=== PATIENT | male | born 1935 | race Two or more races ===

== ENCOUNTER 2024-12-10 18:53 | Inpatient (IN) | payer OTHER ==
[~2024-12-10] VITALS: Ht 177.8 cm; Wt 83.5 kg
[~2024-12-10 18:53] MED LIST: AZITTAB2 PO
[2024-12-10 20:08] LABS: Hematocrit 38.5 % (41.0-53.0); Hemoglobin 12.8 g/dL (13.5-17.5); Mean Corpuscular Hemoglobin 31.7 pg (28.0-32.0); Mean Corpuscular Volume 95.2 fL (80.0-100.0); Nucleated Red Blood Cells % 0.0 %
--- NOTE | 2024-12-10 20:14 | DVH ---
CHEST RADIOGRAPH Indication: Suspected Sepsis Technique: Single frontal view of the chest was obtained Comparison: CT CT ANGIO CHEST CONTRAST on DOS: 07/20/23 FINDINGS: Lines and Tubes: None Lungs: No focal consolidation. Changes of the lungs. Hyperinflation of the lungs. Pleura: No effusion. No pneumothorax. Cardiomediastinal contours: Borderline cardiomegaly with Moderate atherosclerotic calcification uncoi ling of the aorta. Bones: No acute osseous abnormality. Partially imaged eyeglasses and springlike structure over the le ft upper abdominal quadrant which are most likely external to the patient.. IMPRESSION: No acute cardiopulmonary disease. Mild hyperinflation.
[2024-12-10 20:28] LABS: Alanine Aminotransferase 18 U/L (7-40); Albumin 4.6 g/dL (3.2-4.8); Alkaline Phosphatase 50 U/L (46-116); Anion Gap 10 (5-15); BUN/Creatinine Ratio 14.0 (10.0-20.0); Blood Urea Nitrogen 14 mg/dL (9-23); Calcium 9.7 mg/dL (8.7-10.4); Carbon Dioxide 24 mmol/L (20-31); Chloride 105 mmol/L (98-107); Potassium 4.9 mmol/L (3.5-5.1); Sodium 139 mmol/L (136-145); Total Protein 7.1 g/dL (5.7-8.2)
[2024-12-10 20:29] LABS: Bilirubin, Total 0.5 mg/dL (0.2-1.0)
--- NOTE | 2024-12-10 20:29 | ED.PDOC ---
History of Present Illness HPI Comments REVIEW OF SYSTEMS: General: No fever, no chills, or fatigue HEENT: No sore throat, no earache, no congestion, no neck pain. Cardiac: No chest pain. No palpitations. Lungs: No shortness of breath, no cough. GI: No nausea, no vomiting, no diarrhea, no constipation, no abdominal pain : No dysuria, frequency, or urgency. No hematuria. Musculoskeletal: No joint pain , no joint swelling, no extremity edema. Skin: No rash, no itching. Neuro: No headache, no dizziness, no weakness PHYSICAL EXAM: General: Awake, alert and oriented. No acute distress. Skin: Skin in warm, dry and intact. Appropriate color for ethnicity. HEENT: The head is normocephalic and atraumatic. Conjunctivae are clear without exudates or hemorrhage. Sclera is non-icteric. EOM are intact. No signs of nystagmus. Eyelids are normal in appearance without swelling or lesions. Oral mucosa is pink and moist Neck: The neck is supple with normal range of motion. No JVD. Cardiac: Heart rate and rhythm are normal. No murmurs, gallops, or rubs are aus cultated. Respiratory: No signs of respiratory distress. Lung sounds are clear in all lobes bilaterally without rales, rhonchi, or wheezes. Abdominal: Abdomen is soft, non-tender without distention, guarding or rigidity. Bowel sounds are present and normoactive in all four quadrants. Extremities: Upper and lower extremities are atraumatic in appearance without deformity or edema. Neurological: The patient is awake, alert and oriented to person, place, and time with normal speech. Speech is clear. There is no facial asymmetry. Psychiatric: Appropriate mood and affect. Good judgement and insight. Chief Complaint: Tremors Primary Care Provider: NONE Allergies: Coded Allergies: Clindamycin (Verified Allergy, Unknown, 07/20/23) Uncoded Allergies: DEMEROL HCL (Allergy, Unknown, 12/10/24) Home Meds Active Scripts Azithromycin (Zithromax Tri-Gerber) 500 Mg Tab, 500 MG PO DAILY PRN for 3 Days, #3 TAB Prov:VALORIE FERNANDEZ MD 07/20/23 Mode of Arrival: Ambulatory Past Medical History PAST MEDICAL HISTORY: HTN Family History Family History: Unknown Social History Smoker: Non-Smoker Alcohol: Denies ETOH Use Drugs: Denies Drug Use Lives In: Home X-Ray, Labs, Meds, VS Vital Signs Date Time Temp Pulse Resp B/P (MAP) Pulse Ox O2 Delivery O2 Flow Rate FiO2 12/10/24 19:06 98.3 88 18 171/71 97 98.3 Lab Test 12/10/24 19:47 Range/Units White Blood Count 19.4 H 4.4-10.8 10^3/uL Red Blood Count 4.05 L 4.5-5.90 10^6/uL Hemoglobin 12.8 L 13.5-17.5 g/dL Hematocrit 38.5 L 41.0-53.0 % Mean Corpuscular Volume 95.2 80.0-100.0 fL Mean Corpuscular Hemoglobin 31.7 28.0-32.0 pg Mean Corpuscular Hemoglobin Concent 33.3 32.0-36.0 g/dL Red Cell Distribution Width 14.1 11.8-14.3 % Platelet Count 224 140-450 10^3/uL Mean Platelet Volume 7.8 6.9-10.8 fL Neutrophils (%) (Auto) 84.2 H 37.0-80.0 % Lymphocytes (%) (Auto) 7.9 L 10.0-50.0 % Monocytes (%) (Auto) 6.5 0.0-12.0 % Eosinophils (%) (Auto) 0.8 0.0-7.0 % Basophils (%) (Auto) 0.6 0.0-2.0 % Neutrophils # (Auto) 16.4 H 1.6-8.6 10 ^3/uL Lymphocytes # (Auto) 1.5 0.4-5.4 10 ^3/uL Monocytes # (Auto) 1.3 0-1.3 10 ^3/uL Eosinophils # (Auto) 0.2 0-0.8 10 ^3/uL Basophils # (Auto) 0.1 0-0.2 10 ^3/uL Nucleated Red Blood Cells 0.0 % Sodium Level 139 136-145 mmol/L Potassium Level 4.9 3.5-5.1 mmol/L Chloride Level 105 98-107 mmol/L Carbon Dioxide Level 24 20-31 mmol/L Anion Gap 10 5-15 Blood Urea Nitrogen 14 9-23 mg/dL Creatinine 1.00 0.700-1.30 mg/dL Glomerular Filtration Rate Calc 72 >90 mL/min BUN/Creatinine Ratio 14.0 10.0-20.0 Serum Glucose 117 H 74-106 mg/dL Lactic Acid Level Pending Calcium Level 9.7 8.7-10.4 mg/dL Total Bilirubin 0.5 0.2-1.0 mg/dL Aspartate Amino Transferase (AST) 23 13-40 U/L Alanine Aminotransferase (ALT) 18 7-40 U/L Alkaline Phosphatase 50 46-116 U/L Total Protein 7.1 5.7-8.2 g/dL Albumin 4.6 3.2-4.8 g/dL SEPSIS Sepsis Screen Date sepsis recognized/suspect: Dec 10, 2024 Time Sepsis recognized/suspect: 1905 Recent Procedure: No On Antibiotic Therapy: No Respiratory Rate >20: No Heart Rate >90: No Temp<36 C (96.8 F) or >38.3 C: No SBP <90 or MAP <65 mmHG: No New Acute Mental Status Change: No Is the patient on CPAP, BIPAP,: No Physician Orders Lactic Acid W/ Reflex Order (12/10/24 19:35) Blood Culture (12/10/24 19:35) Chest Xray 1 View (12/10/24 19:35) Urinalysis (12/10/24 19:35) Comprehensive Metabolic Panel (12/10/24 19:35) Vital Signs Date Time Temp Pulse Resp B/P (MAP) Pulse Ox O2 Delivery O2 Flow Rate FiO2 12/10/24 19:06 98.3 88 18 171/71 97 98.3 Laboratory Tests Test 12/10/24 19:47 Lactic Acid Level Pending White Blood Count 19.4 10^3/uL (4.4-10.8) H Departure 1 Departure Comments MDM: Extensive evaluation was performed in attempt to identify or rule out: (See differential diagnosis section) The following tests were ordered, and results were reviewed by me and discussed with patient: (See diagnostic results section) The following test were independently interpreted by me: N/A I reviewed and agreed with the following test results read by other providers: N/A I reviewed the following notes from the pt's past medical encounters: N/A Additional information was gathered from interviewing the following independent historians: N/A Discussion of management or test interpretation with external physician/other qualified health home health care physician: N/A Addressed [ ]one or more chronic illnesses with severe exacerbation, progression, or side effects of treatment: [ ]an acute or chronic illness that poses a threat to life or bodily function: [ ] Decision regarding hospitalization or escalation of hospital level of care: Risk and benefits of admission for further treatment of patient's condition was considered. Due to patient's current clinical condition, high risk of decline and poor outcome if discharged and need for further inpatient management and monitoring, patient will be admitted to the hospital. Drug therapy requiring intensive monitoring for toxicity: N/A Parenteral controlled substances: N/A Decision regarding elective major surgery with identified patient or procedure risk factors: N/A Decision regarding emergency major surgery: N/A Decision not to resuscitate or to de-escalate care because of poor prognosis: N/A Diagnosis or treatment significantly limited by social determinants of health: N/A Decision regarding hospitalization or escalation of hospital level of care: Risks and benefits of admission for further treatment of patient's condition was considered however due to patient's stable condition patient will be discharged to follow up closely or return to care for worsening of condition or inability to follow up. I personally scribed for NAMAN SUAZO MD ([email or web address]) on 12/10/24 at 20:29. Electronically submitted by Lemuel Gutierrez ([email or web address]). I personally scribed for NAMAN SUAZO MD ([email or web address]) on 12/10/24 at 20:31. Electronically submitted by Lemuel Gutierrez ([email or web address]). NAMAN SUAZO MD Dec 10, 2024 20:29
[2024-12-10 20:30] LABS: Glucose 117 mg/dL (74-106)
--- NOTE | 2024-12-10 20:31 | ED.PDOC ---
History of Present Illness HPI Comments 89-year-old male presents with chief complaint of chills and generalized tremors. Patient reports on sudden onset of symptoms after taking a bowel movement at around 6:00 p.m., this evening. Endorses on being fine prior. Positive sick contact from . History symptoms in the past when he was found with pneumonia, which he was treated with azithromycin then. Additional reported significant history of hypertension and lung nodule in right upper lobe status post bronchoscopy. Patient denies having any chest pain, shortness of breath, dizziness, lightheadedness, fever, or further associated symptoms. REVIEW OF SYSTEMS: General: Chills, no fever, or fatigue HEENT: No sore throat, no earache, no congestion, no neck pain. Cardiac: No chest pain. No palpitations. Lungs: No shortness of breath, no cough. GI: No nausea, no vomiting, no diarrhea, no constipation, no abdominal pain : No dysuria, frequency, or urgency. No hematuria. Musculoskeletal: No joint pain , no joint swelling, no extremity edema. Skin: No rash, no itching. Neuro: Generalized tremors, no headache, no dizziness, no weakness PHYSICAL EXAM: General: Awake, alert and oriented. No acute distress. Skin: Skin in warm, dry and intact. Appropriate color for ethnicity. HEENT: The head is normocephalic and atraumatic. Conjunctivae are clear without exudates or hemorrhage. Sclera is non-icteric. EOM are intact. No signs of nystagmus. Eyelids are normal in appearance without swelling or lesions. Oral mucosa is pink and moist Neck: The neck is supple with normal range of motion. No JVD. Cardiac: Heart rate and rhythm are normal. No murmurs, gallops, or rubs are aus cultated. Respiratory: No signs of respiratory distress. Lung sounds are clear in all lobes bilaterally without rales, rhonchi, or wheezes. Abdominal: Abdomen is soft, non-tender without distention, guarding or rigidity. Bowel sounds are present and normoactive in all four quadrants. Extremities: Upper and lower extremities are atraumatic in appearance without deformity or edema. Neurological: The patient is awake, alert and oriented to person, place, and time with normal speech. Speech is clear. There is no facial asymmetry. Generalized Fine tremors. Psychiatric: Appropriate mood and affect. Good judgement and insight. Chief Complaint: Tremors Time Seen by MD: 18:55 Primary Care Provider: NONE Reviewed Notes: Nurses Notes, Medications, Allergies Allergies: Coded Allergies: Clindamycin (Verified Allergy, Unknown, 07/20/23) Uncoded Allergies: DEMEROL HCL (Allergy, Unknown, 12/10/24) Home Meds Active Scripts Azithromycin (Zithromax Tri-Gerber) 500 Mg Tab, 500 MG PO DAILY PRN for 3 Days, #3 TAB Prov:VALORIE FERNANDEZ MD 07/20/23 Information Source: Patient Mode of Arrival: Ambulatory Severity: Moderate Timing: Hours Duration: Since onset Prehospital treatment: None Past Medical History PAST MEDICAL HISTORY: HTN Past Medical History (Other): history of a nodule found in October 2022 to his right upper lung s/p bronchoscopy Surgical History (Other): bronchoscopy Family History Family History: Unknown Social History Smoker: Non-Smoker Alcohol: Denies ETOH Use Drugs: Denies Drug Use Lives In: Home Was a procedure done? Was a procedure done?: No Differential Dx Considerations may include: Differential diagnoses considered include but are not limited to sepsis, CVA, ACS, PE, stroke, ICH, adrenal insufficiency, viral syndrome, thyroid storm, myxedema coma , DKA, HHS, hypoglycemia, anemia, GI bleeding, renal failure, dehydration, hepatic failure, electrolyte imbalance, carbon monoxide poisoning, malignancy, UTI, pneumonia, among others. X-Ray, Labs, Meds, VS Vital Signs Date Time Temp Pulse Resp B/P (MAP) Pulse Ox O2 Delivery O2 Flow Rate FiO2 12/11/24 00:40 91 20 94 Room Air* 0 21 12/11/24 00:40 99.1 91 18 125/60 (81) 95 99.1 12/10/24 19:06 98.3 88 18 171/71 97 98.3 Lab Test 12/10/24 21:47 12/10/24 19:47 Range/Units Lactic Acid Level 4.2 *H 2.4 *H 0.4-2.0 mmol/L White Blood Count 19.4 H 4.4-10.8 10^3/uL Red Blood Count 4.05 L 4.5-5.90 10^6/uL Hemoglobin 12.8 L 13.5-17.5 g/dL Hematocrit 38.5 L 41.0-53.0 % Mean Corpuscular Volume 95.2 80.0-100.0 fL Mean Corpuscular Hemoglobin 31.7 28.0-32.0 pg Mean Corpuscular Hemoglobin Concent 33.3 32.0-36.0 g/dL Red Cell Distribution Width 14.1 11.8-14.3 % Platelet Count 224 140-450 10^3/uL Mean Platelet Volume 7.8 6.9-10.8 fL Neutrophils (%) (Auto) 84.2 H 37.0-80.0 % Lymphocytes (%) (Auto) 7.9 L 10.0-50.0 % Monocytes (%) (Auto) 6.5 0.0-12.0 % Eosinophils (%) (Auto) 0.8 0.0-7.0 % Basophils (%) (Auto) 0.6 0.0-2.0 % Neutrophils # (Auto) 16.4 H 1.6-8.6 10 ^3/uL Lymphocytes # (Auto) 1.5 0.4-5.4 10 ^3/uL Monocytes # (Auto) 1.3 0-1.3 10 ^3/uL Eosinophils # (Auto) 0.2 0-0.8 10 ^3/uL Basophils # (Auto) 0.1 0-0.2 10 ^3/uL Nucleated Red Blood Cells 0.0 % Sodium Level 139 136-145 mmol/L Potassium Level 4.9 3.5-5.1 mmol/L Chloride Level 105 98-107 mmol/L Carbon Dioxide Level 24 20-31 mmol/L Anion Gap 10 5-15 Blood Urea Nitrogen 14 9-23 mg/dL Creatinine 1.00 0.700-1.30 mg/dL Glomerular Filtration Rate Calc 72 >90 mL/min BUN/Creatinine Ratio 14.0 10.0-20.0 Serum Glucose 117 H 74-106 mg/dL Calcium Level 9.7 8.7-10.4 mg/dL Total Bilirubin 0.5 0.2-1.0 mg/dL Aspartate Amino Transferase (AST) 23 13-40 U/L Alanine Aminotransferase (ALT) 18 7-40 U/L Alkaline Phosphatase 50 46-116 U/L Total Protein 7.1 5.7-8.2 g/dL Albumin 4.6 3.2-4.8 g/dL Current Medications Medications (Trade) Dose Ordered Sig/Daija Route Start Time Stop Time Status Last Admin Ceftriaxone Sodium 50 ml @ 100 mls/hr ONCE ONCE IV 12/10/24 21:45 12/10/24 22:14 DC 12/11/24 00:30 Sodium Chloride 1,000 ml @ 1,000 mls/hr Q1H ONCE IV 12/10/24 21:45 12/10/24 22:44 DC 12/11/24 00:30 Sodium Chloride 1,000 ml @ 130 mls/hr Q7H42M ONCE IV 12/10/24 21:45 12/11/24 05:26 12/11/24 00:30 Vancomycin HCl 250 ml @ 250 mls/hr ONCE ONCE IV 12/10/24 22:00 12/10/24 22:59 DC 12/11/24 00:31 [place] [id number] Ph: [phone] DIAGNOSTIC IMAGING Diagnostic Imaging Report : [id number] Signed PATIENT: DEMETRIS PARRISH ACCT: [id number] UNIT: [id number] : 1935 LOC: ER ROOM / BED: / AGE / SEX: 89 / M ADM STATUS: REG ER SERVICE 34 ORDERING PHYSICIAN: NAMAN SUAZO MD PROCEDURE(s): CXR1 - CHEST XRAY 1 VIEW REASON: Suspected Sepsis ORDER NUMBER(s): [id number], ACCESSION NUMBER(s): [id number] CHEST RADIOGRAPH Indication: Suspected Sepsis Technique: Single frontal view of the chest was obtained Comparison: CT CT ANGIO CHEST CONTRAST on DOS: 07/20/23 FINDINGS: Lines and Tubes: None Lungs: No focal consolidation. Changes of the lungs. Hyperinflation of the lungs. Pleura: No effusion. No pneumothorax. Cardiomediastinal contours: Borderline cardiomegaly with Moderate atherosclerotic calcification uncoiling of the aorta. Bones: No acute osseous abnormality. Partially imaged eyeglasses and springlike structure over the left upper abdominal quadrant which are most likely external to the patient.. IMPRESSION: No acute cardiopulmonary disease. Mild hyperinflation. ATED BY: JIHAN MILLER DO DICTATED DATE/TIME: 12/10/242010 SIGNED BY: JIHAN MILLER DO SIGNED DATE/TIME: 12/10/242010 CC: Time of 1ST Reevaluation: 19:25 Reevaluation 1ST: Unchanged Patient Education/Counseling: Other (Need for admission) Family Education/Counseling: No Family Present SEPSIS Sepsis Screen Date sepsis recognized/suspect: Dec 10, 2024 Time Sepsis recognized/suspect: 1905 Recent Procedure: No On Antibiotic Therapy: No Respiratory Rate >20: No Heart Rate >90: No Temp<36 C (96.8 F) or >38.3 C: No SBP <90 or MAP <65 mmHG: No New Acute Mental Status Change: No Is the patient on CPAP, BIPAP,: No Physician Orders Blood Culture (12/10/24 19:35) Chest Xray 1 View (12/10/24 19:35) Sodium Chloride 0.9% (12/10/24 21:45) Straight Cath. (12/11/24 ) Vital Signs Date Time Temp Pulse Resp B/P (MAP) Pulse Ox O2 Delivery O2 Flow Rate FiO2 12/11/24 00:40 91 20 94 Room Air* 0 21 12/11/24 00:40 99.1 91 18 125/60 (81) 95 99.1 12/10/24 19:06 98.3 88 18 171/71 97 98.3 Laboratory Tests Test 12/10/24 19:47 12/10/24 21:47 Lactic Acid Level 2.4 mmol/L (0.4-2.0) *H 4.2 mmol/L (0.4-2.0) *H White Blood Count 19.4 10^3/uL (4.4-10.8) H Medications Medications Dose Ordered Sig/Daija Route Start Time Stop Time Status Last Admin Dose Admin Ceftriaxone Sodium 50 ml @ 100 mls/hr ONCE ONCE IV 12/10/24 21:45 12/10/24 22:14 DC 12/11/24 00:30 Sodium Chloride 1,000 ml @ 130 mls/hr Q7H42M ONCE IV 12/10/24 21:45 12/11/24 05:26 12/11/24 00:30 Sodium Chloride 1,000 ml @ 1,000 mls/hr Q1H ONCE IV 12/10/24 21:45 12/10/24 22:44 DC 12/11/24 00:30 Vancomycin HCl 250 ml @ 250 mls/hr ONCE ONCE IV 12/10/24 22:00 12/10/24 22:59 DC 12/11/24 00:31 Departure 1 Departure Time of Disposition: 21:44 Impression: Primary Impression: Sepsis Disposition: ADMITTED INPATIENT Condition: Stable Comments MDM: MDM: 81-year-old male presents to the emergency department with tremor Initial evaluation included thorough history, physical examination and appropriate diagnostic testing. Based on the clinical presentation and diagnostic findings, the patient appears to have sepsis Antibiotics, IV fluids initiated in the ED Given the complexity of the case and need for further management patient is being admitted to the hospitalist service for further monitoring, treatment and evaluation. Risks, benefits and alternatives of admission and proposed interventions were discussed with the patient. Patient is in agreement with the plan. Extensive evaluation was performed in attempt to identify or rule out: (See differential diagnosis section) The following tests were ordered, and results were reviewed by me and discussed with patient: (See diagnostic results section) The following test were independently interpreted by me: N/A I reviewed and agreed with the following test results read by other providers: Chest x-ray I reviewed the following notes from the pt's past medical encounters: July 20, 2023 encounter for pneumonia Additional information was gathered from interviewing the following independent historians: N/A Discussion of management or test interpretation with external physician/other qualified health infant caregiver: N/A Addressed an acute or chronic illness that poses a threat to life or bodily function: Sepsis Decision regarding hospitalization or escalation of hospital level of care: Risk and benefits of admission for further treatment of patient's condition was considered. Due to patient's current clinical condition, high risk of decline and poor outcome if discharged and need for further inpatient management and monitoring, patient will be admitted to the hospital. Critical Care Note Critical Care Time?: No Stability Stability form required: No Heart Score Heart Score: Heart Score Response (Comments) Value History N/A 0 EKG N/A 0 Age N/A 0 Risk Factors N/A 0 Troponin N/A 0 Total 0 I personally scribed for NAMAN SUAZO MD ([email or web address]) on 12/10/24 at 20:31. Electronically submitted by Lemuel Gutierrez ([email or web address]). I personally scribed for NAMAN SUAZO MD ([email or web address]) on 12/10/24 at 23:25. Electronically submitted by Lemuel Gutierrez ([email or web address]). NAMAN SUAZO MD Dec 10, 2024 20:31
[2024-12-10 20:32] LABS: Lactic Acid w/Reflex 2.4 mmol/L (0.4-2.0)
[2024-12-10] MEDS ORDERED: VANCOMYCIN 1GM/200ML PM 200 ML IV ONE (21:45)
[2024-12-11] VITALS (9 sets, daily range): BP systolic 113–148; BP diastolic 44–67; PULSE 72–91; RESP 18–21; TEMP 98–99.4; O2SAT 93–96
[2024-12-11] MEDS: cefTRIAXone 1GM/50ML D5W 50 ML IV ONE (00:30)
[2024-12-11] MEDS: SODIUM CHLORIDE 0.9% 1,000 ML IV ONE ×2 (00:30)
[2024-12-11] MEDS: VANCOMYCIN 1GM/250ML KIT 250 ML IV ONE (00:31)
[2024-12-11] MEDS ORDERED: DOCUSATE SOD 100 MG CAP PO PRN (01:45)
[2024-12-11] MEDS ORDERED: hydrALAZINE HCL 20 MG/ML VL IV PRN (01:45)
[2024-12-11] MEDS ORDERED: NITROGLYCERIN 0.4 MG SL TAB SL PRN (01:45)
[2024-12-11] MEDS ORDERED: MORPHINE SULFATE INJ 2 MG/ml SYRG IV PRN (01:45)
[2024-12-11] MEDS ORDERED: ONDANSETRON HCL 4 MG/2 ML VIAL IV PRN (01:45)
[2024-12-11] MEDS ORDERED: ALBUTEROL SULF 2.5 MG/0.5ML(0.5%) NEB SOLN NEB PRN (01:45)
[2024-12-11] MEDS ORDERED: ACETAMINOPHEN 325 MG TAB PO PRN (01:45)
[2024-12-11] MEDS: SODIUM CHLORIDE 0.9% 1,000 ML IV SCH (02:40)
[2024-12-11 03:24] LABS: Urine Protein, UAD TRACE (Negative)
--- NOTE | 2024-12-11 03:44 | DVHHP2 ---
DORIAN ROSE [employer] 12/11/24 0344: History of Present Illness Reason for Visit: Tremors History of Present Illness 89-year-old male with past medical history of juvenile asthma, hypertension, h yperlipidemia, infectious pulmonary nodule presents with complaints of tremors x1 day. Patient states he went to go have a bowel movement began to experience tremors shortly after. has recently been sick around him.. States last time he began to feel like this he had a bad infection. During the emergency department evaluation W19.4, H&H 12.8/30.5, PLT 224, LA 2.4/4.2 due to delays in ER treatment. Otherwise CMP essentially unremarkable UA was negative. CXR impression read mild hyperinflation of the lungs, with no acute cardiopulmonary disease. At this time patient denies fevers, chills, chest pain, palpitations, abdominal pain, nausea, vomiting, dysuria, hematemesis, hematochezia, melena. Cardiovascular: HTN, hyperipidemia Pulmonary: Other (Pulmonary nodule) Smoke: No ALCOHOL: none Drugs: None Lives: with Family Review of Systems Constitutional: Yes: Malaise, Other (Tremors); No: Fever, Chills, Sweats, [place] Eyes: No: Pain, Vision change, Conjunctivae inflammation, Eyelid inflammation, Other, Redness ENT: No: Ear pain, Ear discharge, Nose pain, Nose discharge, Nose congestion, Mouth pain, Mouth swelling, Throat pain, Throat swelling, Other Respiratory: Shortness of breath; No: Cough, Dry, SOB with excertion, Wheezing, Hemoptysis, Pleuritic Pain, Sputum, Wheezing, Other Cardiovascular: No: Chest Pain, Palpitations, Orthopnea, Paroxysmal Noc. Dyspnea, Edema, Lt Headedness, Other Gastrointestinal: No: Nausea, Vomiting, Abdominal Pain, Diarrhea, Constipation, Melena, Hematochezia, Other Genitourinary: No Dysuria, No Frequency, No Incontinence, No Hematuria, No Retention, No Other Musculoskeletal: No: other, neck pain, shoulder pain, arm pain, back pain, hand pain, leg pain, foot pain Skin: No: Rash, Lesions, Jaundice, Bruising, Other Neurological: No: Weakness, Numbness, Incoordination, Change in speech, Confusion, Seizures, Other Allergies: Coded Allergies: Clindamycin (Verified Allergy, Unknown, 07/20/23) Uncoded Allergies: DEMEROL HCL (Allergy, Unknown, 12/10/24) Medications Current Medications Medications Dose Ordered Sig/Daija Route Start Time Stop Time Status Last Admin Dose Admin Sodium Chloride 1,000 ml @ 100 mls/hr Q10H IV 12/11/24 01:45 Docusate Sodium 100 mg BIDPRN PRN PO 12/11/24 01:45 Acetaminophen 650 mg Q6HP PRN PO 12/11/24 01:45 Acetaminophen/ Hydrocodone Bitart 1 tab Q4HP PRN PO 12/11/24 01:45 Ondansetron HCl 4 mg Q4HP PRN IV 12/11/24 01:45 Enoxaparin Sodium 40 mg DAILY SC 12/11/24 10:00 Nitroglycerin 0.4 mg Q5MINP PRN SL 12/11/24 01:45 Morphine Sulfate 2 mg Q30M PRN IV 12/11/24 01:45 Ceftriaxone Sodium 50 ml @ 100 mls/hr DAILY@0000 IV 12/12/24 00:00 Atorvastatin Calcium 10 mg DAILY PO 12/11/24 10:00 Metoprolol Succinate 50 mg DAILY PO 12/11/24 10:00 Hydralazine HCl 10 mg Q6HP PRN IV 12/11/24 01:45 Albuterol 2.5 mg Q6HP PRN NEB 12/11/24 01:45 Ipratropium [place] 0.5 mg Q6HPRN PRN NEB 12/11/24 01:45 Exam Vital Signs Vital Signs Date Time Temp Pulse Resp B/P (MAP) Pulse Ox O2 Delivery O2 Flow Rate FiO2 12/11/24 02:02 99.1 91 18 125/60 95 0.0 99.1 12/11/24 00:40 Room Air* 21 General Appearance: Alert, Oriented X3, Cooperative, No acute distress HEENT: Atraumatic, PERRLA, EOMI Respiratory: Clear to auscultation, Normal air movement Cardiovascular: Regular rate, Normal S1, Normal S2 Abdominal: Normal bowel sounds, Soft, No tenderness Extremities: No clubbing, No cyanosis, No edema Skin: No rashes, No breakdown Neuro: Normal speech, Strength at 5/5 X4 ext Psych/Mental Status: Mental status NL, Mood NL Labs/Xrays Labs Test 12/11/24 03:09 12/10/24 21:47 12/10/24 19:47 Range/Units Urine Color Yellow Yellow Urine Clarity Clear Clear Urine pH 5.5 5.0-9.[address] [place] 1.020 1.001-1.035 Urine Protein Trace H Negative Urine Ketones Negative Negative Urine Blood Negative Negative /uL Urine Nitrite Negative Negative Urine Bilirubin Negative Negative Urine Urobilinogen Normal Negative mg/dL Urine Leukocyte Esterase Negative Negative /uL Urine Glucose Normal Normal mg/dL Lactic Acid Level 4.2 *H 0.4-2.0 mmol/L White Blood Count 19.4 H 4.4-10.8 10^3/uL Red Blood Count 4.05 L 4.5-5.90 10^6/uL Hemoglobin 12.8 L 13.5-17.5 g/dL Hematocrit 38.5 L 41.0-53.0 % Mean Corpuscular Volume 95.2 80.0-100.0 fL Mean Corpuscular Hemoglobin 31.7 28.0-32.0 pg Mean Corpuscular Hemoglobin Concent 33.3 32.0-36.0 g/dL Red Cell Distribution Width 14.1 11.8-14.3 % Platelet Count 224 140-450 10^3/uL Mean Platelet Volume 7.8 6.9-10.8 fL Neutrophils (%) (Auto) 84.2 H 37.0-80.0 % Lymphocytes (%) (Auto) 7.9 L 10.0-50.0 % Monocytes (%) (Auto) 6.5 0.0-12.0 % Eosinophils (%) (Auto) 0.8 0.0-7.0 % Basophils (%) (Auto) 0.6 0.0-2.0 % Neutrophils # (Auto) 16.4 H 1.6-8.6 10 ^3/uL Lymphocytes # (Auto) 1.5 0.4-5.4 10 ^3/uL Monocytes # (Auto) 1.3 0-1.3 10 ^3/uL Eosinophils # (Auto) 0.2 0-0.8 10 ^3/uL Basophils # (Auto) 0.1 0-0.2 10 ^3/uL Nucleated Red Blood Cells 0.0 % Sodium Level 139 136-145 mmol/L Potassium Level 4.9 3.5-5.1 mmol/L Chloride Level 105 98-107 mmol/L Carbon Dioxide Level 24 20-31 mmol/L Anion Gap 10 5-15 Blood Urea Nitrogen 14 9-23 mg/dL Creatinine 1.00 0.700-1.30 mg/dL Glomerular Filtration Rate Calc 72 >90 mL/min BUN/Creatinine Ratio 14.0 10.0-20.0 Serum Glucose 117 H 74-106 mg/dL Calcium Level 9.7 8.7-10.4 mg/dL Total Bilirubin 0.5 0.2-1.0 mg/dL Aspartate Amino Transferase (AST) 23 13-40 U/L Alanine Aminotransferase (ALT) 18 7-40 U/L Alkaline Phosphatase 50 46-116 U/L Total Protein 7.1 5.7-8.2 g/dL Albumin 4.6 3.2-4.8 g/dL SEPSIS Sepsis Screen Date sepsis recognized/suspect: Dec 11, 2024 Time Sepsis recognized/suspect: 004 Recent Procedure: No On Antibiotic Therapy: Yes Respiratory Rate >20: No Heart Rate >90: Yes Temp<36 C (96.8 F) or >38.3 C: No SBP <90 or MAP <65 mmHG: No New Acute Mental Status Change: No Is the patient on CPAP, BIPAP,: No Physician Orders Sodium Chloride 0.9% (12/10/24 21:45) Straight Cath. (12/11/24 ) Admit (12/11/24:32) Code Status (12/11/24:) Vital Signs .PER UNIT PROTOCOL (12/11/24:32) Review Orders With Adm. (12/11/24:32) Encourage Activity As Tolerate (12/11/24:32) Regular Diet (12/11/24 Breakfast) Sodium Chloride 0.9% (12/11/24 01:45) Oxygen By Face Mask (12/11/24:32) Docusate Sodium Capsule (Colace Capsule) (12/11/24 01:45) Acetaminophen Tablet (Tylenol Tablet) (12/11/24 01:45) Notify Md Of Changes From Base (12/11/24:32) Advance Directive (12/11/24:32) Basic Metabolic Panel (12/11/24 05:00) Basic Metabolic Panel (12/12/24 05:00) Basic Metabolic Panel (12/13/24 05:00) Basic Metabolic Panel (12/14/24 05:00) Basic Metabolic Panel (12/15/24 05:00) Complete Blood Count (12/11/24 05:00) Complete Blood Count (12/12/24 05:00) Complete Blood Count (12/13/24 05:00) Complete Blood Count (12/14/24 05:00) Complete Blood Count (12/15/24 05:00) Urine Bacterial Culture (12/11/2432) Patient Condition (12/11/24:32) Allergies (12/11/24:32) Hydrocodone-Acet 5/325mg Tab ([place] (12/11/24 01:45) Ondansetron Hcl (Zofran) (12/11/24 01:45) Enoxaparin Sodium (Lovenox) (12/11/24 10:00) Sequential Compression Device (12/11/24 ) Nitroglycerin Sublingual (Ntrostat Subli (12/11/24 01:45) Morphine Sulfate Injection (12/11/24 01:45) Stat Ekg For Chest Pain (12/11/24:32) Notify Md Of Changes From Base (12/11/2432) Child Development Professor For 24 Hours (12/11/24:32) Emergency Dysrhythmia Protocol (12/11/24:32) Rhythm Strips Once Every Shift (12/11/24:32) Oxygen By Nasal Cannula (12/11/24:32) Lactic Acid W/ Reflex Order (12/11/24 06:00) Lactic Acid W/ Reflex Order (12/11/24 10:00) Vancomycin Per Pharmacy Protoc (12/11/24:32) Atorvastatin (Lipitor) (12/11/24 10:00) Metoprolol Xl Succinate (Toprol Xl) (12/11/24 10:00) Hydralazine Injection (Apresoline Inject (12/11/24 01:45) * Infectious [place]- Dr. Leroy Wolff (12/11/24 01:41) Albuterol Medneb (Ventolin Medneb) (12/11/24 01:45) Ipratropium Medneb (Atrovent Medneb) (12/11/24 01:45) Communication Order (12/11/24 01:46) Ceftriaxone 1gm/50ml D5w (Rocephin) (12/12/24 00:00) Vital Signs Date Time Temp Pulse Resp B/P (MAP) Pulse Ox O2 Delivery O2 Flow Rate FiO2 12/11/24 02:02 99.1 91 18 125/60 95 0.0 99.1 12/11/24 00:40 91 20 94 Room Air* 0 21 12/11/24 00:40 99.1 91 18 125/60 (81) 95 99.1 Laboratory Tests Test 12/10/24 19:47 12/10/24 21:47 Lactic Acid Level 2.4 mmol/L (0.4-2.0) *H 4.2 mmol/L (0.4-2.0) *H White Blood Count 19.4 10^3/uL (4.4-10.8) H Medications Medications Dose Ordered Sig/Daija Route Start Time Stop Time Status Last Admin Dose Admin Ceftriaxone Sodium 50 ml @ 100 mls/hr ONCE ONCE IV 12/10/24 21:45 12/10/24 22:14 DC 12/11/24 00:30 100 MLS/HR Sodium Chloride 1,000 ml @ 130 mls/hr Q7H42M ONCE IV 12/10/24 21:45 12/11/24 05:26 12/11/24 00:30 130 MLS/HR Sodium Chloride 1,000 ml @ 1,000 mls/hr Q1H ONCE IV 12/10/24 21:45 12/10/24 22:44 DC 12/11/24 00:30 1,000 MLS/HR Vancomycin HCl 250 ml @ 250 mls/hr ONCE ONCE IV 12/10/24 22:00 12/10/24 22:59 DC 12/11/24 00:31 250 MLS/HR Assessment/Plan Assessment/Plan Sepsis unknown etiology Hypertension Hx pulmonary nodule Plan Admit telemetry Consult infectious disease. Blood culture pending. Urine cultures, pending. IVF Broad spectrum IV ABX Continue home medication. As needed and antihypertensive for optimal BP management. Physical therapy evaluation Gi ppx protonix / dvt ppx lovenox Plan discussed with: Patient My Orders Orders - DORIAN ROSE NP Procedure Category Date Status Time Admit ADMIT 12/11/24 Transmitted 01:32 Code Status CODE 12/11/24 Transmitted 01:32 Vital Signs KATE 12/11/24 In Process 01:32 Review Orders With KATE 12/11/24 In Process Adm. 01:32 Encourage Activity As KTAE 12/11/24 In Process Tolerate 01:32 Regular Diet DIET 12/11/24 Transmitted Breakfast Sodium Chloride 0.9% PHA 12/11/24 In Process 01:45 Oxygen By Face Mask RT 12/11/24 Transmitted 01:32 Docusate Sodium PHA 12/11/24 In Process Capsule (Colace 01:45 Acetaminophen Tablet PHA 12/11/24 In Process (Tylenol Tablet) 01:45 Notify Of Changes KATE 12/11/24 In Process From Base 01:32 Advance Directive KATE 12/11/24 In Process 01:32 Basic Metabolic Panel LAB 12/11/24 Logged 05:00 Basic Metabolic Panel LAB 12/12/24 Verified 05:00 Basic Metabolic Panel LAB 12/13/24 Verified 05:00 Basic Metabolic Panel LAB 12/14/24 Verified 05:00 Basic Metabolic Panel LAB 12/15/24 Verified 05:00 Complete Blood Count LAB 12/11/24 Logged 05:00 Complete Blood Count LAB 12/12/24 Verified 05:00 Complete Blood Count LAB 12/13/24 Verified 05:00 Complete Blood Count LAB 12/14/24 Verified 05:00 Complete Blood Count LAB 12/15/24 Verified 05:00 Urine Bacterial GIOVANNY 12/11/24 In Process Culture 01:32 Patient Condition ORDERS 12/11/24 Transmitted 01:32 Allergies KATE 12/11/24 In Process 01:32 Hydrocodone-Acet PHA 12/11/24 In Process 5/325mg Tab ([place] 01:45 Ondansetron Hcl PHA 12/11/24 In Process (Zofran) 01:45 Enoxaparin Sodium PHA 12/11/24 In Process (Lovenox) 10:00 Sequential KATE 12/11/24 In Process Compression Device Nitroglycerin PHA 12/11/24 In Process Sublingual (Ntrostat 01:45 Morphine Sulfate PHA 12/11/24 In Process Injection 01:45 Stat Ekg For Chest KATE 12/11/24 In Process Pain 01:32 Notify Of Changes KATE 12/11/24 In Process From Base 01:32 Child Development Professor For KATE 12/11/24 In Process 24 Hours 01:32 Emergency Dysrhythmia KATE 12/11/24 In Process Protocol 01:32 Rhythm Strips Once KATE 12/11/24 In Process Every Shift 01:32 Oxygen By Nasal RT 12/11/24 Transmitted Cannula 01:32 Lactic Acid W/ Reflex LAB 12/11/24 Logged Order 06:00 Lactic Acid W/ Reflex LAB 12/11/24 Logged Order 10:00 Vancomycin Per KATE 12/11/24 In Process Pharmacy Protoc 01:32 Atorvastatin (Lipitor) PHA 12/11/24 In Process 10:00 Metoprolol Xl PHA 12/11/24 In Process Succinate (Toprol Xl) 10:00 Hydralazine Injection PHA 12/11/24 In Process (Apresoline Inject 01:45 * Infectious [place]- CONS 12/11/24 Transmitted Leroy Wolff 01:41 Albuterol Medneb PHA 12/11/24 In Process (Ventolin Medneb) 01:45 Ipratropium Medneb PHA 12/11/24 In Process (Atrovent Medneb) 01:45 Communication Order ORDERS 12/11/24 Transmitted 01:46 Ceftriaxone 1gm/50ml PHA 12/12/24 In Process D5w (Rocephin) 00:00 Date of Service: Dec 11, 2024 Billing Provider: MICHAEL OVIEDO MD Common Visit Codes: NOT BILLABLE MICHAEL OVIEDO MD 12/12/24 1450: Review of Systems Allergies: Coded Allergies: Clindamycin (Verified Allergy, Unknown, 07/20/23) Uncoded Allergies: DEMEROL HCL (Allergy, Unknown, 12/10/24) Additional Comments Additional Comments Additional Comments Patient's chart is reviewed and discussed with the nurse practitioner. Patient is seen evaluated by nurse practitioner. I agree with his evaluation, documentation, assessment and care plan as outlined. DORIAN ROSE NP Dec 11, 2024 03:44 MICHAEL OVIEDO MD Dec 12, 2024 14:50
[2024-12-11 06:14] LABS: Hematocrit 36.4 % (41.0-53.0); Hemoglobin 12.4 g/dL (13.5-17.5); Mean Corpuscular Hemoglobin 31.9 pg (28.0-32.0); Mean Corpuscular Volume 93.7 fL (80.0-100.0)
[2024-12-11 06:17] LABS: Calcium 8.9 mg/dL (8.7-10.4); Potassium 3.8 mmol/L (3.5-5.1); Sodium 139 mmol/L (136-145)
[2024-12-11 06:18] LABS: Anion Gap 11 (5-15); Carbon Dioxide 20 mmol/L (20-31)
[2024-12-11 06:21] LABS: Chloride 108 mmol/L (98-107)
[2024-12-11 06:23] LABS: BUN/Creatinine Ratio 16.5 (10.0-20.0); Blood Urea Nitrogen 17 mg/dL (9-23)
[2024-12-11 06:33] LABS: Glucose 117 mg/dL (74-106)
[2024-12-11] MEDS: HYDROcodone-ACET 5/325MG TAB PO PRN (06:42)
[2024-12-11 06:44] LABS: Lactic Acid w/Reflex 2.1 mmol/L (0.4-2.0)
[2024-12-11 07:00] LABS: Total Cells Counted 100.0 (100)
[2024-12-11] MEDS: SODIUM CHLORIDE 0.9% 500 ML IV ONE (07:00)
[2024-12-11] MEDS ORDERED: VANCOMYCIN PER PHARMACY 0 MG IV SCH (08:30)
[2024-12-11] MEDS: ENOXAPARIN SOD 40 MG/0.4 ML SYRINGE SC SCH (10:33)
[2024-12-11] MEDS: ATORVASTATIN 20 MG TAB PO SCH (10:34)
[2024-12-11] MEDS: METOPROLOL SUCCINATE XL 50 MG TAB PO SCH (10:35)
[2024-12-11 10:37] LABS: Lactic Acid w/Reflex 3.1 mmol/L (0.4-2.0)
[2024-12-11] MEDS ORDERED: SODIUM CHLORIDE 0.9% 250 ML IV ONE (13:45)
[2024-12-11 15:25] LABS: Lactic Acid w/Reflex 2.6 mmol/L (0.4-2.0)
[2024-12-11] MEDS: VANCOMYCIN 750MG KIT 100 ML IV SCH (18:10)
[2024-12-11] MEDS: CEFEPIME 1GM/ 50ML 50 ML IV SCH (22:09)
[2024-12-12] VITALS (11 sets, daily range): BP systolic 135–150; BP diastolic 57–80; PULSE 63–144; RESP 18–20; TEMP 97.9–99.9; O2SAT 92–100
[2024-12-12] MEDS ORDERED: cefTRIAXone 1GM/50ML D5W 50 ML IV SCH
[2024-12-12 07:06] LABS: Calcium 8.8 mg/dL (8.7-10.4); Chloride 107 mmol/L (98-107); Potassium 3.6 mmol/L (3.5-5.1); Sodium 140 mmol/L (136-145)
[2024-12-12 07:07] LABS: Anion Gap 10 (5-15); Carbon Dioxide 23 mmol/L (20-31)
[2024-12-12 07:12] LABS: BUN/Creatinine Ratio 16.9 (10.0-20.0); Blood Urea Nitrogen 14 mg/dL (9-23)
[2024-12-12 07:19] LABS: Glucose 133 mg/dL (74-106)
[2024-12-12 08:04] LABS: Hematocrit 34.9 % (41.0-53.0); Hemoglobin 11.6 g/dL (13.5-17.5); Mean Corpuscular Hemoglobin 31.5 pg (28.0-32.0); Mean Corpuscular Volume 94.7 fL (80.0-100.0)
[2024-12-12 09:21] LABS: Total Cells Counted 100.0 (100)
--- NOTE | 2024-12-12 16:05 | DVHPN2 ---
Progress Note - Dictate Date Seen: Dec 12, 2024 Medical Necessity Reason Pt with a Central, PICC or Fol: No Subjective Patient feels better. Unclear why patient has bacteremia. Patient apparently had peripheral arterial disease and had a angiogram with balloon angioplasty for his lower extremities couple of weeks ago. vital signs Vital Sign Date Time Temp Pulse Resp B/P (MAP) Pulse Ox O2 Delivery O2 Flow Rate FiO2 12/12/24 12:59 99.4 144 20 135/66 (89) 95 99.4 12/12/24 10:00 Room Air 0.0 12/12/24 10:00 21 Total Intake and Output 12/11/24 12/11/24 12/12/24 15:00 23:00 07:00 Intake Total 400 ml 120 ml 350 ml Output Total 400 ml Balance 400 ml 120 ml -50 ml medications Current Medications Medications Dose Ordered Sig/Daija Route Start Time Stop Time Status Last Admin Dose Admin Docusate Sodium 100 mg BIDPRN PRN PO 12/11/24 01:45 Acetaminophen 650 mg Q6HP PRN PO 12/11/24 01:45 Acetaminophen/ Hydrocodone Bitart 1 tab Q4HP PRN PO 12/11/24 01:45 12/11/24 06:42 1 TAB Ondansetron HCl 4 mg Q4HP PRN IV 12/11/24 01:45 Enoxaparin Sodium 40 mg DAILY SC 12/11/24 10:00 12/12/24 09:29 40 MG Nitroglycerin 0.4 mg Q5MINP PRN SL 12/11/24 01:45 Morphine Sulfate 2 mg Q30M PRN IV 12/11/24 01:45 Hydralazine HCl 10 mg Q6HP PRN IV 12/11/24 01:45 Albuterol 2.5 mg Q6HP PRN NEB 12/11/24 01:45 Ipratropium [place] 0.5 mg Q6HPRN PRN NEB 12/11/24 01:45 Cefepime HCl 50 ml @ 12.5 mls/hr Q12HR IV 12/11/24 22:00 12/12/24 09:31 12.5 MLS/HR Vancomycin HCl 0 ml @ 0 mls/hr UD IV 12/11/24 08:30 Vancomycin HCl 100 ml @ 100 mls/hr Q14H IV 12/11/24 15:00 12/12/24 05:27 100 MLS/HR Atorvastatin Calcium 10 mg HS PO 12/13/24 22:00 Metoprolol Succinate 50 mg DAILY@1800 PO 12/13/24 18:00 Lisinopril 20 mg BID PO 12/12/24 22:00 Amlodipine Bes[place] 5 mg DAILY PO 12/13/24 10:00 Aspirin 81 mg DAILY PO 12/13/24 10:00 Fluticasone Propionate 100 mcg DAILY EACHNOSTRI 12/12/24 22:00 Fexofenadine HCl 60 mg DAILY PO 12/13/24 10:00 Clonidine HCl 0.1 mg BID PO 12/12/24 22:00 objective Feels better. Alert awake oriented x3. Afebrile. HEENT neck supple no JVD. Heart regular rate rhythm S1-S2. No murmurs or gallops heard. Lungs fair air movement without rales wheezes. Abdomen soft nontender positive bowel sounds. Extremities 1+ edema around the ankles. laboratory and microbiology Laboratory Tests 12/12/24 06:10 Test 12/12/24 06:10 Range/Units Serum Glucose 133 H 74-106 mg/dL Assessment/Plan Gram-positive bacteremia Peripheral arterial disease with a recent angioplasty two weeks ago per patient Malignant hypertension Lower extremity edema We will follow echocardiogram results. 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 We will give him dose of IV diuretic for leg edema. We will order ultrasound of the legs to rule out DVT. Otherwise continue current broad-spectrum antibiotics. Further clinical management per clinical course and pending evaluations studies. Discussed with the patient and at bedside regarding care plan Plan discussed with: Patient MICHAEL OVIEDO MD Dec 12, 2024 16:04
--- NOTE | 2024-12-12 16:19 | DVHSR ---
APPROVED REPORT EXAM: Two-dimensional and M-mode echocardiogram with Doppler and color Doppler. Blood Pressure: 136/57 mmHg INDICATION Bacteremia RISK FACTORS Height: 5'10", Weight: 185 DIMENSIONS LVDd5.3 (3.8-5.7cm)LA (2D)4.4 (1.9-4.0cm)Aortic Root4.2 (2.0-3.7cm) LVDs4.1 (2.5-4.0cm)LA (MM) (1.9-4.0cm)Aortic Cusp Exc0.5 (1.5-2.0cm) EF (%) 45.0 (55-70%)Rt. Atrium4.0 (1.9-4.0cm)Asc. Aorta3.8 cm IVSd1.2 (0.7-1.1cm)RV (D) (1.8-2.4cm) PWd0.9 (0.7-1.1cm) Mitral Valve MitralMitral Stenosis E wave1.74m/sMV Mean GR.6mmHg A wavem/sMV Peak GR.14mmHg E/A ratio0.02D MVAcm2 Aortic Valve Aortic ValveAortic Stenosis V10.74m/Jose Armando Mean GR.10mmHg V22.01m/Jose Armando Peak GR.16mmHg LVOT Diameter2.4 (1.8-2.4cm)Doppler AVA1.66cm2 AI P 1/2 Wfjm241.70ms Pulmonic Valve V20.89m/s Tricuspid Valve TR Velocity2.66m/s [id number] Other Information Quality : Technically LimitedRhythm : Technically limited study due to body habitus. 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
[2024-12-12] MEDS: FUROSEMIDE 20 MG/2 ML VIAL IV ONE (17:03)
--- NOTE | 2024-12-12 17:11 | DVH ---
BILATERAL LOWER EXTREMITY VENOUS DUPLEX REASON FOR EXAMINATION: Leg swelling COMPARISON: None TECHNIQUE: Using real-time freeze-frame technique with a high-frequency transducer, multiple longitu dinal and transverse sections were obtained. Simultaneous color flow and spectral Doppler imaging wa s performed. FINDINGS: There is good visualization of the deep venous system with no intraluminal filling defects identified. Normal venous compressibility is seen and there is flow augmentation. Color flow Doppler imaging is unremarkable. IMPRESSION: NO EVIDENCE OF DEEP VENOUS THROMBOSIS.
[2024-12-12] MEDS: IPRATROPIUM BROM 0.5 MG/2.5ML INH SOL NEB PRN (20:00)
[2024-12-12] MEDS: LISINOPRIL 20 MG TAB PO SCH (21:24)
[2024-12-12] MEDS: FLUTICASONE PROP NASAL SPR 0.05 % (50MCG) 16GM EACHNOSTRI SCH (21:26)
[2024-12-13] VITALS (13 sets, daily range): BP systolic 123–158; BP diastolic 57–94; PULSE 63–115; RESP 16–20; TEMP 97.9–99.1; O2SAT 92–100
[2024-12-13 07:46] LABS: Hematocrit 35.5 % (41.0-53.0); Hemoglobin 12.3 g/dL (13.5-17.5); Mean Corpuscular Hemoglobin 32.2 pg (28.0-32.0); Mean Corpuscular Volume 93.3 fL (80.0-100.0); Nucleated Red Blood Cells % 0.0 %
[2024-12-13 08:33] LABS: Chloride 103 mmol/L (98-107); Sodium 138 mmol/L (136-145)
[2024-12-13 08:34] LABS: Anion Gap 10 (5-15); Carbon Dioxide 25 mmol/L (20-31)
[2024-12-13 08:35] LABS: Calcium 9.0 mg/dL (8.7-10.4)
[2024-12-13 08:36] LABS: Potassium 3.3 mmol/L (3.5-5.1)
[2024-12-13 08:39] LABS: BUN/Creatinine Ratio 21.1 (10.0-20.0); Blood Urea Nitrogen 19 mg/dL (9-23)
[2024-12-13 08:44] LABS: Glucose 128 mg/dL (74-106)
[2024-12-13] MEDS: FEXOFENADINE HCL 60 MG TAB PO SCH (10:04)
--- NOTE | 2024-12-13 14:58 | DVHPN2 ---
Progress Note - Dictate Date Seen: Dec 13, 2024 Medical Necessity Reason Pt with a Central, PICC or Fol: No Subjective Patient feels better. Unclear why patient has bacteremia. Patient apparently had peripheral arterial disease and had a angiogram with balloon angioplasty for his lower extremities couple of weeks ago. vital signs Vital Sign Date Time Temp Pulse Resp B/P (MAP) Pulse Ox O2 Delivery O2 Flow Rate FiO2 12/13/24 14:48 63 18 100 12/13/24 14:45 Room Air 12/13/24 14:45 0 21 12/13/24 11:02 142/72 12/13/24 09:00 98.4 98.4 Total Intake and Output 12/12/24 12/12/24 12/13/24 15:00 23:00 07:00 Intake Total 50 ml 680 ml 350 ml Output Total 875 ml 400 ml Balance 50 ml -195 ml -50 ml medications Current Medications Medications Dose Ordered Sig/Daija Route Start Time Stop Time Status Last Admin Dose Admin Docusate Sodium 100 mg BIDPRN PRN PO 12/11/24 01:45 Acetaminophen 650 mg Q6HP PRN PO 12/11/24 01:45 Acetaminophen/ Hydrocodone Bitart 1 tab Q4HP PRN PO 12/11/24 01:45 12/12/24 17:04 1 TAB Ondansetron HCl 4 mg Q4HP PRN IV 12/11/24 01:45 Enoxaparin Sodium 40 mg DAILY SC 12/11/24 10:00 12/12/24 09:29 40 MG Nitroglycerin 0.4 mg Q5MINP PRN SL 12/11/24 01:45 Morphine Sulfate 2 mg Q30M PRN IV 12/11/24 01:45 Hydralazine HCl 10 mg Q6HP PRN IV 12/11/24 01:45 Albuterol 2.5 mg Q6HP PRN NEB 12/11/24 01:45 Ipratropium [place] 0.5 mg Q6HPRN PRN NEB 12/11/24 01:45 12/12/24 20:00 0.5 MG Cefepime HCl 50 ml @ 12.5 mls/hr Q12HR IV 12/11/24 22:00 12/13/24 11:06 12.5 MLS/HR Vancomycin HCl 0 ml @ 0 mls/hr UD IV 12/11/24 08:30 Atorvastatin Calcium 10 mg HS PO 12/13/24 22:00 Metoprolol Succinate 50 mg DAILY@1800 PO 12/13/24 18:00 Lisinopril 20 mg BID PO 12/12/24 22:00 12/13/24 10:03 20 MG Aspirin 81 mg DAILY PO 12/13/24 10:00 12/13/24 10:03 81 MG Fluticasone Propionate 100 mcg DAILY EACHNOSTRI 12/12/24 22:00 12/13/24 09:15 100 MCG Fexofenadine HCl 60 mg DAILY PO 12/13/24 10:00 12/13/24 10:04 60 MG Clonidine HCl 0.1 mg BID PO 12/12/24 22:00 12/13/24 10:02 0.1 MG Vancomycin HCl 100 ml @ 100 mls/hr Q8H IV 12/13/24 18:00 objective Feels better. Alert awake oriented x3. Afebrile. HEENT neck supple no JVD. Heart regular rate rhythm S1-S2. No murmurs or gallops heard. Lungs fair air movement without rales wheezes. Abdomen soft nontender positive bowel sounds. Extremities 1+ edema around the ankles. laboratory and microbiology Laboratory Tests 12/13/24 06:34 Test 12/13/24 06:34 Range/Units Serum Glucose 128 H 74-106 mg/dL Assessment/Plan Gram-positive bacteremia Peripheral arterial disease with a recent angioplasty two weeks ago per patient Malignant hypertension Lower extremity edema ULTRASOUND OF THE LEGS NEGATIVE FOR DVT. Blood cultures growing Streptococcus organisms. Continue current antibiotics monitor him overnight we will transitioned to oral antibiotics in the morning and discharge home. Discussed with the patient and his who is at bedside regarding care plan and blood culture and echocardiogram results. Plan discussed with: Patient, Spouse MICHAEL OVIEDO MD Dec 13, 2024 14:58
--- NOTE | 2024-12-13 15:55 | MEDREC ---
[facility] ASP Intervention Section I [facility] ASP Intervention: Deescalate AB based on CS (PLEASE CONSIDER DE-ESCALATION BASED ON CULTURE RESULTS) JUAN MIGUEL JOHNSON PHARMACIST Dec 13, 2024 15:55
[2024-12-13] MEDS: VANCOMYCIN 750MG KIT 100 ML IV SCH (17:59)
[2024-12-13] MEDS: METOPROLOL SUCCINATE XL 50 MG TAB PO SCH (17:59)
[2024-12-13] MEDS: ATORVASTATIN 20 MG TAB PO SCH (22:32)
[2024-12-14] VITALS (9 sets, daily range): BP systolic 118–143; BP diastolic 57–81; PULSE 60–99; RESP 16–20; TEMP 97.6–98; O2SAT 93–96
[2024-12-14 07:04] LABS: Hematocrit 35.2 % (41.0-53.0); Hemoglobin 12.2 g/dL (13.5-17.5); Mean Corpuscular Hemoglobin 32.1 pg (28.0-32.0); Mean Corpuscular Volume 92.4 fL (80.0-100.0); Nucleated Red Blood Cells % 0.0 %
[2024-12-14 07:08] LABS: Chloride 104 mmol/L (98-107); Sodium 139 mmol/L (136-145)
[2024-12-14 07:09] LABS: Anion Gap 11 (5-15); Calcium 8.8 mg/dL (8.7-10.4); Carbon Dioxide 24 mmol/L (20-31)
[2024-12-14 07:11] LABS: Potassium 3.5 mmol/L (3.5-5.1)
[2024-12-14 07:14] LABS: BUN/Creatinine Ratio 22.2 (10.0-20.0); Blood Urea Nitrogen 18 mg/dL (9-23)
[2024-12-14 07:16] LABS: Glucose 124 mg/dL (74-106)
[2024-12-14] MEDS ORDERED: AMOX500T86 PO (13:28)
[2024-12-14] MEDS ORDERED: NITR-52 PO (13:28)
--- NOTE | 2024-12-14 14:01 | DVHDS2 ---
Discharge Summary Date of Admission Dec 11, 2024 at 01:32 Date of Discharge: Dec 14, 2024 Labs/Diagnostic Data: Laboratory Results Test 12/14/24 10:00 12/14/24 06:29 12/12/24 06:10 12/11/24 19:01 Vancomycin Level Trough 16.0 ug/mL (5-10) White Blood Count 15.7 10^3/uL (4.4-10.8) Red Blood Count 3.80 10^6/uL (4.5-5.90) Hemoglobin 12.2 g/dL (13.5-17.5) Hematocrit 35.2 % (41.0-53.0) Mean Corpuscular Volume 92.4 fL (80.0-100.0) Mean Corpuscular Hemoglobin 32.1 pg (28.0-32.0) Mean Corpuscular Hemoglobin Concent 34.7 g/dL (32.0-36.0) Red Cell Distribution Width 13.8 % (11.8-14.3) Platelet Count 185 10^3/uL (140-450) Mean Platelet Volume 8.2 fL (6.9-10.8) Neutrophils (%) (Auto) 72.5 % (37.0-80.0) Lymphocytes (%) (Auto) 11.1 % (10.0-50.0) Monocytes (%) (Auto) 13.4 % (0.0-12.0) Eosinophils (%) (Auto) 2.7 % (0.0-7.0) Basophils (%) (Auto) 0.3 % (0.0-2.0) Neutrophils # (Auto) 11.4 10 ^3/uL (1.6-8.6) Lymphocytes # (Auto) 1.7 10 ^3/uL (0.4-5.4) Monocytes # (Auto) 2.1 10 ^3/uL (0-1.3) Eosinophils # (Auto) 0.4 10 ^3/uL (0-0.8) Basophils # (Auto) 0 10 ^3/uL (0-0.2) Nucleated Red Blood Cells 0.0 % Sodium Level 139 mmol/L (136-145) Potassium Level 3.5 mmol/L (3.5-5.1) Chloride Level 104 mmol/L (98-107) Carbon Dioxide Level 24 mmol/L (20-31) Anion Gap 11 (5-15) Blood Urea Nitrogen 18 mg/dL (9-23) Creatinine 0.81 mg/dL (0.700-1.30) Glomerular Filtration Rate Calc 85 mL/min (>90) BUN/Creatinine Ratio 22.2 (10.0-20.0) Serum Glucose 124 mg/dL (74-106) Calcium Level 8.8 mg/dL (8.7-10.4) Differential Total Cells Counted 100.0 (100) Neutrophils % (Manual) 86 (37.0-80.0) Band Neutrophils % (Manual) 0 Lymphocytes % (Manual) 8 (10.0-50.0) Monocytes % (Manual) 6 (0-12) Eosinophils % (Manual) 0 (0-7) Basophils % (Manual) 0 (0.0-2.0) Metamyelocytes % (manual) 0 Myelocytes % (Manual) 0 Promyelocytes % (Manual) 0 Blast Cells % (Manual) 0 Reactive Lymphocytes 0 Platelet Estimate Adequate Lactic Acid Level 1.6 mmol/L (0.4-2.0) Test 12/11/24 03:09 12/10/24 19:47 Urine Color Yellow (Yellow) Urine Clarity Clear (Clear) Urine pH 5.5 (5.0-9.0) Urine Specific [place] 1.020 (1.001-1.035) Urine Protein Trace (Negative) Urine Ketones Negative (Negative) Urine Blood Negative /uL (Negative) Urine Nitrite Negative (Negative) Urine Bilirubin Negative (Negative) Urine Urobilinogen Normal mg/dL (Negative) Urine Leukocyte Esterase Negative /uL (Negative) Urine Glucose Normal mg/dL (Normal) Total Bilirubin 0.5 mg/dL (0.2-1.0) Aspartate Amino Transferase (AST) 23 U/L (13-40) Alanine Aminotransferase (ALT) 18 U/L (7-40) Alkaline Phosphatase 50 U/L (46-116) Total Protein 7.1 g/dL (5.7-8.2) Albumin 4.6 g/dL (3.2-4.8) Other Laboratory Tests 12/14/24 06:29 Brief Hx & Hospital Course: 89-year-old male with past medical history of juvenile asthma, hypertension, hyperlipidemia, infectious pulmonary nodule presents with complaints of tremors x1 day. Patient states he went to go have a bowel movement began to experience tremors shortly after. has recently been sick around him.. States last time he began to feel like this he had a bad infection. During the emergency department evaluation W19.4, H&H 12.8/30.5, PLT 224, LA 2.4/4.2 due to delays in ER treatment. Otherwise CMP essentially unremarkable UA was negative. CXR impression read mild hyperinflation of the lungs, with no acute cardiopulmonary disease. At this time patient denies fevers, chills, chest pain, palpitations, abdominal pain, nausea, vomiting, dysuria, hematemesis, hematochezia, melena. He is admitted and echocardiogram did not show any acute significant pathology. His blood culture was positive for Staph agalactiae and urine cultures are growing staph epidermis. Patient has received cefepime and IV vancomycin. Based on the sounds stated this patient transitioned to oral antibiotics. He is afebrile. His white cell count has improved. He is feeling better. No complaints. I have talked with the patient explained to him that he has both urine as well as blood the infection. He is advised to finish the antibiotics as he was placed creatinine to follow up with primary care physician to repeat blood and urine cultures after two weeks to make sure infection is cleared up. Patient verbalized understanding of the risks, verbalized understanding hospital diagnosis, treatment received, discharge medications, discharge instructions and agree with follow up plan of care as outlined Operations or Procedures APPROVED REPORT EXAM: Two-dimensional and M-mode echocardiogram with Doppler and color Doppler. Blood Pressure: 136/57 mmHg INDICATION Bacteremia RISK FACTORS Height: 5'10", Weight: 185 DIMENSIONS LVDd 5.3 (3.8-5.7cm) LA (2D) 4.4 (1.9-4.0cm) Aortic Root 4.2 (2.0- 3.7cm) LVDs 4.1 (2.5-4.0cm) LA (MM) (1.9-4.0cm) Aortic Cusp Exc 0.5 (1.5- 2.0cm) EF (%) 45.0 (55-70%) Rt. Atrium 4.0 (1.9-4.0cm) Asc. Aorta 3.8 cm IVSd 1.2 (0.7-1.1cm) RV (D) (1.8-2.4cm) PWd 0.9 (0.7-1.1cm) Mitral Valve Mitral Mitral Stenosis E wave 1.74m/s MV Mean GR. 6mmHg A wave m/s MV Peak GR. 14mmHg E/A ratio 0.0 2D MVA cm2 Aortic Valve Aortic Valve Aortic Stenosis V1 0.74m/s AO Mean GR. 10mmHg V2 2.01m/s AO Peak GR. 16mmHg LVOT Diameter 2.4 (1.8-2.4cm) Doppler SHANT 1.66cm2 AI P 1/2 Time 386.70ms Pulmonic Valve V2 0.89m/s Tricuspid Valve TR Velocity 2.66m/s RVSP 31mmHg Other Information Quality : Technically Limited Rhythm : Technically limited study due to body habitus. 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 moderate to severe mitral regurg mild tricuspid regurg SIGNED BY: ENOCH HUMPHRIES MD SIGNED DATE/TIME: 12/12/24 1616 Condition at Discharge: Stable Final Diagnosis/Problems List UTI with the staph and bacteremia with strep organisms Discharge Disposition: Home Discharge Instruct/Medications Diet: Consistent carbohydrate, Cardiac 2g Na,low cholest Activity: No Restrictions, As Tolerated Follow Up/Referral: Primary care physician after 10 days to repeat your blood and urine cultures to make sure infection is resolved Medications: Take antibiotics as prescribed Scheduled Amoxicillin & Pot Clavulanate (Augmentin), 1 TAB PO BID Nitrofurantoin (Nitrofurantoin), 1 CAP PO BID Scheduled PRN Azithromycin (Zithromax Tri-Gerber), 500 MG PO DAILY PRN Discharge Statement: "Patient was advised to return to the ER or call 911 if any headaches, dizziness, shortness of breath, chest pain, abdominal pain, bleeding, fevers, or worsening of medical condition. Patient was counseled about treatment plan, medications, possible side effects, patientverbalized understanding. All questions were answered to the best of my ability. This discharge took greater then 30 minutes in planning, reviewing documentation, counseling the patient, and discussing with other team members." ASSESSMENT ASSESSMENT Assessment UTI with the staph and bacteremia with strep organisms MICHAEL OVIEDO MD Dec 14, 2024 14:01
--- NOTE | 2024-12-14 15:57 | DVHINCON2 ---
Date of service: Dec 14, 2024 History of Present Illness 89 yo M with htn, pad , HL admitted for bacteremia. his wbc was up to 35K but now much better. he had sinus with lot of PACs on tele. no chest pain . pt had recent PTCA of his legs at another hospital he states. Past Medical History reviewed Family History: Hypertension Allergies: Coded Allergies: Clindamycin (Verified Allergy, Unknown, 07/20/23) Uncoded Allergies: DEMEROL HCL (Allergy, Unknown, 12/10/24) Home Meds Active Scripts Nitrofurantoin (Nitrofurantoin) 100 Mg Cap, 1 CAP PO BID, #10 CAP Prov:MICHAEL OVIEDO MD 12/14/24 Amoxicillin & Pot Clavulanate (Augmentin) 500 Mg Tab, 1 TAB PO BID, #14 TAB Prov:MICHAEL OVIEDO MD 12/14/24 Discontinued Scripts Azithromycin (Zithromax Tri-Gerber) 500 Mg Tab, 500 MG PO DAILY PRN for 3 Days, #3 TAB Prov:VALORIE FERNANDEZ MD 07/20/23 Current Medications Current Medications Medications (Trade) Dose Ordered Sig/Daija Route PRN Reason Start Time Stop Time Status Last Admin Atorvastatin Calcium (Lipitor) 10 mg HS PO 12/13/24 22:00 12/13/24 22:32 Metoprolol Succinate (Toprol Xl) 50 mg DAILY@1800 PO 12/13/24 18:00 12/13/24 17:59 Vancomycin HCl 100 ml @ 100 mls/hr Q8H IV 12/13/24 18:00 12/14/24 11:44 Review of Systems 10 pt ros otherwise negative Vital Signs Vital Signs Date Time Temp Pulse Resp B/P (MAP) Pulse Ox O2 Delivery O2 Flow Rate FiO2 12/14/24 13:00 97.9 74 19 118/72 (87) 93 97.9 12/14/24 10:00 Room Air 0.0 12/14/24 10:00 21 Physical Exam nad s1 s2 rrr ctab soft nt/nd Labs/Diagnostic Data Labs Test 12/14/24 10:00 12/14/24 06:29 12/12/24 06:10 12/11/24 19:01 Range/Units Vancomycin Level Trough 16.0 H 5-10 ug/mL White Blood Count 15.7 #H 4.4-10.8 10^3/uL Red Blood Count 3.80 L 4.5-5.90 10^6/uL Hemoglobin 12.2 L 13.5-17.5 g/dL Hematocrit 35.2 L 41.0-53.0 % Mean Corpuscular Volume 92.4 80.0-100.0 fL Mean Corpuscular Hemoglobin 32.1 H 28.0-32.0 pg Mean Corpuscular Hemoglobin Concent 34.7 32.0-36.0 g/dL Red Cell Distribution Width 13.8 11.8-14.3 % Platelet Count 185 140-450 10^3/uL Mean Platelet Volume 8.2 6.9-10.8 fL Neutrophils (%) (Auto) 72.5 37.0-80.0 % Lymphocytes (%) (Auto) 11.1 10.0-50.0 % Monocytes (%) (Auto) 13.4 H 0.0-12.0 % Eosinophils (%) (Auto) 2.7 0.0-7.0 % Basophils (%) (Auto) 0.3 0.0-2.0 % Neutrophils # (Auto) 11.4 H 1.6-8.6 10 ^3/uL Lymphocytes # (Auto) 1.7 0.4-5.4 10 ^3/uL Monocytes # (Auto) 2.1 H 0-1.3 10 ^3/uL Eosinophils # (Auto) 0.4 0-0.8 10 ^3/uL Basophils # (Auto) 0 0-0.2 10 ^3/uL Nucleated Red Blood Cells 0.0 % Sodium Level 139 136-145 mmol/L Potassium Level 3.5 3.5-5.1 mmol/L Chloride Level 104 98-107 mmol/L Carbon Dioxide Level 24 20-31 mmol/L Anion Gap 11 5-15 Blood Urea Nitrogen 18 9-23 mg/dL Creatinine 0.81 0.700-1.30 mg/dL Glomerular Filtration Rate Calc 85 >90 mL/min BUN/Creatinine Ratio 22.2 H 10.0-20.0 Serum Glucose 124 H 74-106 mg/dL Calcium Level 8.8 8.7-10.4 mg/dL Differential Total Cells Counted 100.0 100 Neutrophils % (Manual) 86 H 37.0-80.0 Band Neutrophils % (Manual) 0 Lymphocytes % (Manual) 8 L 10.0-50.0 Monocytes % (Manual) 6 0-12 Eosinophils % (Manual) 0 0-7 Basophils % (Manual) 0 0.0-2.0 Metamyelocytes % (manual) 0 Myelocytes % (Manual) 0 Promyelocytes % (Manual) 0 Blast Cells % (Manual) 0 Reactive Lymphocytes 0 Platelet Estimate Adequate Lactic Acid Level 1.6 0.4-2.0 mmol/L Test 12/11/24 03:09 12/10/24 19:47 Range/Units Urine Color Yellow Yellow Urine Clarity Clear Clear Urine pH 5.5 5.0-9.0 Urine Specific [place] 1.020 1.001-1.035 Urine Protein Trace H Negative Urine Ketones Negative Negative Urine Blood Negative Negative /uL Urine Nitrite Negative Negative Urine Bilirubin Negative Negative Urine Urobilinogen Normal Negative mg/dL Urine Leukocyte Esterase Negative Negative /uL Urine Glucose Normal Normal mg/dL Total Bilirubin 0.5 0.2-1.0 mg/dL Aspartate Amino Transferase (AST) 23 13-40 U/L Alanine Aminotransferase (ALT) 18 7-40 U/L Alkaline Phosphatase 50 46-116 U/L Total Protein 7.1 5.7-8.2 g/dL Albumin 4.6 3.2-4.8 g/dL Microbiology Date/Time Source Procedure Growth Status 12/11/24 03:09 Urine - Midstream Clean Catch Urine Culture - Final Staphylococcus epidermidis Complete 12/10/24 19:47 Blood Blood Culture - Final S. agalactiae - Group B Complete Assessment bacteremia sepsis pad htn HL PACs Plan/Recommendation moderate LV dysfunction with mitral regurg prn diuretics low dose BB no endocarditis noted close outpt fu given age and recent severe sepsis, GDMT is not feasible , perhaps as outpt Plan discussed with: Patient ENOCH HUMPHRIES MD Dec 14, 2024 15:57
--- NOTE | 2024-12-21 21:17 | DVHINCON2 ---
Date of service: Dec 11, 2024 Family History: Hypertension Allergies: Coded Allergies: Clindamycin (Verified Allergy, Unknown, 07/20/23) Uncoded Allergies: DEMEROL HCL (Allergy, Unknown, 12/10/24) Home Meds Active Scripts Nitrofurantoin (Nitrofurantoin) 100 Mg Cap, 1 CAP PO BID, #10 CAP Prov:MICHAEL OVIEDO MD 12/14/24 Amoxicillin & Pot Clavulanate (Augmentin) 500 Mg Tab, 1 TAB PO BID, #14 TAB Prov:MICHAEL OVIEDO MD 12/14/24 Labs/Diagnostic Data Labs Test 12/14/24 10:00 12/14/24 06:29 12/12/24 06:10 12/11/24 19:01 Range/Units Vancomycin Level Trough 16.0 H 5-10 ug/mL White Blood Count 15.7 #H 4.4-10.8 10^3/uL Red Blood Count 3.80 L 4.5-5.90 10^6/uL Hemoglobin 12.2 L 13.5-17.5 g/dL Hematocrit 35.2 L 41.0-53.0 % Mean Corpuscular Volume 92.4 80.0-100.0 fL Mean Corpuscular Hemoglobin 32.1 H 28.0-32.0 pg Mean Corpuscular Hemoglobin Concent 34.7 32.0-36.0 g/dL Red Cell Distribution Width 13.8 11.8-14.3 % Platelet Count 185 140-450 10^3/uL Mean Platelet Volume 8.2 6.9-10.8 fL Neutrophils (%) (Auto) 72.5 37.0-80.0 % Lymphocytes (%) (Auto) 11.1 10.0-50.0 % Monocytes (%) (Auto) 13.4 H 0.0-12.0 % Eosinophils (%) (Auto) 2.7 0.0-7.0 % Basophils (%) (Auto) 0.3 0.0-2.0 % Neutrophils # (Auto) 11.4 H 1.6-8.6 10 ^3/uL Lymphocytes # (Auto) 1.7 0.4-5.4 10 ^3/uL Monocytes # (Auto) 2.1 H 0-1.3 10 ^3/uL Eosinophils # (Auto) 0.4 0-0.8 10 ^3/uL Basophils # (Auto) 0 0-0.2 10 ^3/uL Nucleated Red Blood Cells 0.0 % Sodium Level 139 136-145 mmol/L Potassium Level 3.5 3.5-5.1 mmol/L Chloride Level 104 98-107 mmol/L Carbon Dioxide Level 24 20-31 mmol/L Anion Gap 11 5-15 Blood Urea Nitrogen 18 9-23 mg/dL Creatinine 0.81 0.700-1.30 mg/dL Glomerular Filtration Rate Calc 85 >90 mL/min BUN/Creatinine Ratio 22.2 H 10.0-20.0 Serum Glucose 124 H 74-106 mg/dL Calcium Level 8.8 8.7-10.4 mg/dL Differential Total Cells Counted 100.0 100 Neutrophils % (Manual) 86 H 37.0-80.0 Band Neutrophils % (Manual) 0 Lymphocytes % (Manual) 8 L 10.0-50.0 Monocytes % (Manual) 6 0-12 Eosinophils % (Manual) 0 0-7 Basophils % (Manual) 0 0.0-2.0 Metamyelocytes % (manual) 0 Myelocytes % (Manual) 0 Promyelocytes % (Manual) 0 Blast Cells % (Manual) 0 Reactive Lymphocytes 0 Platelet Estimate Adequate Lactic Acid Level 1.6 0.4-2.0 mmol/L Test 12/11/24 03:09 12/10/24 19:47 Range/Units Urine Color Yellow Yellow Urine Clarity Clear Clear Urine pH 5.5 5.0-9.0 Urine Specific [place] 1.020 1.001-1.035 Urine Protein Trace H Negative Urine Ketones Negative Negative Urine Blood Negative Negative /uL Urine Nitrite Negative Negative Urine Bilirubin Negative Negative Urine Urobilinogen Normal Negative mg/dL Urine Leukocyte Esterase Negative Negative /uL Urine Glucose Normal Normal mg/dL Total Bilirubin 0.5 0.2-1.0 mg/dL Aspartate Amino Transferase (AST) 23 13-40 U/L Alanine Aminotransferase (ALT) 18 7-40 U/L Alkaline Phosphatase 50 46-116 U/L Total Protein 7.1 5.7-8.2 g/dL Albumin 4.6 3.2-4.8 g/dL Microbiology Date/Time Source Procedure Growth Status 12/11/24 03:09 Urine - Midstream Clean Catch Urine Culture - Final Staphylococcus epidermidis Complete 12/10/24 19:47 Blood Blood Culture - Final S. agalactiae - Group B Complete Problems(with codes): (1) Bacteremia (2) Pneumonia (3) Sepsis Plan/Recommendation ASSESSMENT AND PLAN: ID Problem List: \-- Leukocytosis \-- Elevated lactic acid \-- Fatigue \-- Wheezing \-- Pulmonary nodule, chronic \-- Hypertension \-- Hyperlipidemia \-- Duodenal asthma Assessment This is an 89-year-old male with a past medical history of duodenal asthma, hypertension, hyperlipidemia, and a chronic pulmonary nodule, who presents with a one-day history of tremors and loose bowel movements. He describes feeling unwell, with potential infectious etiology as his has also been ill. There are no other sick contacts. Initial laboratory workup notable for leukocytosis (white blood cell count 19.4, rising to 35.2), hemoglobin 12.8 trending to 12.4, and platelets 224. Lactic acid was initially 2.4, rising to 4.2 before fluid resuscitation was initiated. Sodium 139, BUN 14, creatinine 1.0. On presentation, temperature was 99.1F, p ulse 91, respiratory rate 18, blood pressure 125/60, and SpO2 95% on room air. On exam, the patient appeared fatigued but otherwise healthy, without evidence of lower extremity or upper shoulder weakness. Lungs revealed mild diffuse wheezing. No signs of deep vein thrombosis in the lower extremities. Chest X-ray showed mild hyperinflation with no acute cardiopulmonary disease. He denies smoking, alcohol use, and intravenous drug use. Blood cultures pending, currently with growth of gram-positive cocci in chains. Plan: \-- Continue vancomycin and ceftriaxone for broad spectrum coverage \-- Monitor for ongoing signs of infection and sepsis \-- CT abdomen and pelvis to rule out sources of infection such as ischemic bowel disease given elevated lactic acid and leukocytosis \-- Supportive care with IV fluids and antipyretics as needed \-- Monitor laboratory markers, repeat blood cultures to assess for clearance of bacteremia \-- Recommend sputum culture if productive cough develops for further evaluation \-- No evidence of DVT on duplex; no further investigation at this time \-- No indication for urine culture currently \-- Albuterol and ipratropium were started in the ER for symptomatic wheezing \-- Continue monitoring respiratory symptoms and oxygen saturation Isolation Precautions: Standard \*Assessment and plan was discussed with the patient as written above \*Plan is subject to change pending incorporation of new incoming information/diagnostics. Updates may be added as addendum at the bottom (OR TOP) of this note Thank you for interesting consult. ID will continue to follow. Please contact Infectious Disease for any questions or concerns. Naveen Wolff M.D. [facility] Ph: ? \ History: The patient's chart and medications were reviewed in detail and the patient was seen and examined. History obtained from: patient Jerald Strickland is an 89-year-old male with a history of duodenal asthma, hypertension, hyperlipidemia, and a chronic pulmonary nodule, presenting with tremors and loose bowel movements for one day. Reports feeling unwell, possible infectious exposure from , who has similar symptoms. No tobacco, alcohol, or illicit drug use. Review of Systems: A complete 10-system review of systems was completed and negative except as noted in the HPI or here. ROS: -CONSTITUTIONAL: Fatigue. Denies weight loss, fever and chills. -HEENT: Denies changes in vision and hearing. -RESPIRATORY: Mild wheezing. Denies cough and shortness of breath. -CARDIOVASCULAR: Denies chest pain or palpitations. -GI: Reports loose bowel movements. Denies abdominal pain, nausea, vomiting, or diarrhea. -: Denies dysuria and urinary frequency. -MSK: Denies myalgia and joint pain. No weakness. -SKIN: Denies rash and pruritus. -NEUROLOGICAL: Reports tremors. Denies headache and syncope. -PSYCHIATRIC: Denies recent mood changes, anxiety, or depression. Past Medical History: Diagnosis Date Duodenal asthma Pulmonary nodule, chronic Hypertension Hyperlipidemia Past Surgical History: History reviewed. No pertinent surgical history. Home Medications: Home medications reviewed. Current inpatient medications include: -Albuterol (route/frequency not specified; started in ER for wheezing) -Ipratropium (route/frequency not specified; started in ER for wheezing) -Ceftriaxone (dose/route/frequency not specified; started in ER) -Vancomycin (dose/route/frequency not specified; started after admission) Allergies: Allergy to clindamycin. Family History: Not discussed. Social History: Lives with , who has similar symptoms. Denies tobacco use. Denies alcohol use. Denies intravenous drug use. No other sick contacts. Objective: Vital Signs on Arrival: Temp: 99.1F BP: 125/60 Pulse: 91 Resp: 18 SpO2: 95% on room air Most Recent Vital Signs: Not provided in transcript. Admission Weight: Not provided in transcript. Physical Exam: General: NAD, fatigued appearance Neck: Supple. No masses. HEENT: PERRL. Normal lids and conjunctiva. Moist mucous membranes. Oropharynx without lesions, exudates or excessive erythema. Normal appearance of the external aspects of the nose and ears. Heart: Regular rhythm, normal rate. No murmur. No lower extremity edema. Lungs: Mild diffuse wheezing. Normal respiratory effort. Clear to auscultation otherwise. No crackles. Abdomen: Soft. Non-tender. Non-distended. No masses or abdominal hernia. Msk: No digital cyanosis. Normal strength and tone in all 4 limbs. No upper shoulder or lower extremity weakness. Skin: Warm and dry, no rashes. Neuro: Alert. No facial droop or slurred speech. Extra-ocular movements intact. Sensation intact to soft touch in all 4 limbs. Reports tremors. Psych: Appropriate mood. Full affect. Oriented to person, place, time, and situation. Lines: Not discussed. Diagnostic Studies: Available diagnostic studies were reviewed personally. Significant relevant results and findings are outlined below or addressed in the Assessment and Plan above. Pertinent Imaging: Recent Results -Chest X-ray: Mild hyperinflation of lungs. No acute cardiopulmonary disease. -No evidence of DVT in bilateral lower extremities. -CT abdomen and pelvis: Pending. Labs: -WBC 19.4 (increased to 35.2) -Hemoglobin 12.8 (down to 12.4) -Platelet count 224 -Lactic acid 2.4 (up to 4.2 pre-fluid) -Sodium 139 -BUN 14 -Creatinine 1.0 -Blood cultures: Gram-positive cocci in chains (pending full identification) Plan discussed with: Patient NAVEEN WOLFF MD Dec 21, 2024 21:17
--- NOTE | 2024-12-25 09:16 | DVHPN2 ---
Consult Progress Note Date Seen: Dec 12, 2024 Objective laboratory and microbiology Laboratory Tests 12/14/24 06:29 Test 12/14/24 06:29 Range/Units Serum Glucose 124 H 74-106 mg/dL NAVEEN HERNANDEZ MD Dec 25, 2024 09:16
== END 2024-12-14 17:05 | disposition home or self-care (01) | DRG 872 ==
LOC: EDBD 18:53 → ER 18:53 → OVERFLOW 12-11 01:32 → TELE-CENTR 12-11 18:00
PROVIDERS: ADMIT Nurse Practitioner Family; ATTEND Nurse Practitioner Family
DX: A41.9 Sepsis, unspecified organism (principal); N39.0 Urinary tract infection, site not specified; I73.9 Peripheral vascular disease, unspecified; I08.3 Combined rheumatic disorders of mitral, aortic and tricuspid valves; J45.909 Unspecified asthma, uncomplicated; I10 Essential (primary) hypertension; E78.5 Hyperlipidemia, unspecified; Z98.61 Coronary angioplasty status; Z82.49 Family history of ischemic heart disease and other diseases of the circulatory system; Z88.1 Allergy status to other antibiotic agents; B96.89 Other specified bacterial agents as the cause of diseases classified elsewhere
CPT/HCPCS: 36415; 71045; 80048; 80053; 80202; 81003; 83605; 85007; 85025; 85027; 87040; 87077; 87086; 87088; 87186; 93306; 93970; 94640; G0378